=== PATIENT | male | born 1940 | race Caucasian/White ===

== ENCOUNTER 2022-01-26 09:49 | Outpatient (CLI) | payer OTHER ==
[~2022-01-26] VITALS: Ht 172.7 cm; Wt 80.7 kg
[~2022-01-26 09:49] MED LIST: ASPI-845 PO; BIMA2.5D OP; BRIN10DR6 EACHEYE; CALC-472 PO; CHOL400C8 PO; LEDI1TAB PO; MULT-785 PO; OMEG500C PO; PERFLUTREN PROTEIN-A MICROSPHR (Optison) 0.22 MG/ML 3ML VIAL IV ONE; PRAV10TA38 PO; TIM0.5OS OP
--- NOTE | 2022-01-26 10:45 | NUR ---
Pt is 81 year old male came to [facility] for outpatient echo with optison, Pt is GCS 15, alert and oriented, skin p/w/d, resp even and unlabored, 1045 started 18gu to Rt AC on first attempt, 124/81, HR 80, RR 18, 96% on room air 1050 first dose of optison 0.5ml given IV, pt is lying on left side for procedure, 100/65, 96% on room air, RR 18, HR 72 1055 second dose of optison 0.5ml IV given, 114/73, 96%, HR 72, RR 20 1100 3rd dose of optison 0.5ml IV given, 129/81, 95%, RR 20, HR 72 1115 135/86, 97%, RR 20, HR 84 1130 163/100, 98% on room air, HR 83, RR 20 pt tolerated procedure well, GCS 15, alert and oriented, resp even and unlabored, skin p/w/d, pt amb with slow steady gait to lobby.
== END 2022-01-26 23:59 | disposition home or self-care (01) ==
LOC: RAD 09:49
PROVIDERS: ATTEND Internal Medicine Interventional Cardiology
DX: I51.3 Intracardiac thrombosis, not elsewhere classified (principal)
CPT/HCPCS: 93308; Q9956